=== PATIENT | male | born 1940 | race Caucasian/White ===

== ENCOUNTER 2017-04-17 12:38 | Day surgery (SDC) | payer MEDICARE ==
[2017-04-17] VITALS (7 sets, daily range): BP systolic 110–123; BP diastolic 56–84
[~2017-04-17] VITALS: Ht 182.9 cm; Wt 81.4 kg
[2017-04-17] MEDS ORDERED: diphenhydrAMINE 50 mg/ml inj ONE (12:44)
[2017-04-17] MEDS ORDERED: fentaNYL/PF 50MCG/1 ML 2ML syringe ONE (12:44)
[2017-04-17] MEDS ORDERED: MIDAZolam 5mg/ml 2ml vial ONE (12:44)
[2017-04-17] MEDS ORDERED: meperidine/PF 100mg/ml syringe ONE (12:44)
[2017-04-17] MEDS ORDERED: LIDOcaine Viscous 15ml cup ONE (12:45)
[2017-04-17] MEDS ORDERED: glucagon, human recombinant 1mg kit ONE (12:45)
[2017-04-17] MEDS ORDERED: levoFLOXACIN-Levaquin 500mg/D5 100 ML IV ONE (12:45)
[2017-04-17] MEDS ORDERED: iohexol 300 MG/1 ML 50ml polymer ONE (12:45)
[2017-04-17] MEDS ORDERED: ASPI-974 PO (13:21)
[2017-04-17] MEDS ORDERED: lisinopril PO (13:22)
[2017-04-17] MEDS ORDERED: PRAV40TA3 PO (13:23)
[2017-04-17] MEDS ORDERED: HYDR25TA4 PO (13:23)
== END 2017-04-17 16:25 | disposition home or self-care (01) ==
LOC: GI LAB 12:38
PROVIDERS: ATTEND Internal Medicine Gastroenterology
DX: C24.9 Malignant neoplasm of biliary tract, unspecified (principal); K83.1 Obstruction of bile duct; Z79.82 Long term (current) use of aspirin; Z79.899 Other long term (current) drug therapy
CPT/HCPCS: 43261; 43274; 99153; G0500; J1610; J1956; J2250; J3010; J7030; Q9967; J1200; J2175